=== PATIENT | female | born 1990 | race Caucasian/White ===

== ENCOUNTER 2020-01-13 09:52 | Day surgery (SDC) ==
[2020-01-13] MEDS ORDERED: NS 1,000 ML IV ONE (10:11)
[2020-01-13] MEDS ORDERED: ZOFRAN IV ONE (10:11)
[2020-01-13 10:25] LABS: URINE SOURCE CLEAN CATCH
[2020-01-13] MEDS ORDERED: DILAUDID IV ONE (10:34)
[2020-01-13 10:41] LABS: BASO# 0.02 X1000 (0.0-0.2); BASO% 0.1 % (0.0-0.8); EOS# 0.04 X1000 (0.0-0.7); EOS% 0.2 % (0.0-10.0); HEMATOCRIT 37.3 % (37.0-47.0); HEMOGLOBIN 12.7 g/dL (12.0-16.0); IMM GRAN# 0.07 X1000 (0.0-0.04); IMM GRAN% 0.4 % (0.0-0.5); LYMPH# 1.52 X1000 (1.2-3.4); LYMPH% 9.4 % (20.5-51.1); MCH 28.9 PG (27-31); MONO# 1.19 X1000 (0.11-0.59); MONO% 7.3 % (1.7-9.3); MPV 10.4 FL (7.4-10.4); NEUT# 13.37 X1000 (1.4-6.5); NEUT% 82.6 % (42.2-75.2); PLT 218 X1000 (130-400); RBC 4.39 XMIL (4.2-5.4); RDW 12.8 % (11.5-14.5); WBC 16.21 X1000 (4.8-10.8)
[2020-01-13 10:44] LABS: BILIRUBIN URINE NEGATIVE (NEGATIVE); BLOOD URINE NEGATIVE (NEGATIVE); COLOR YELLOW; GLUCOSE URINE NEGATIVE (NEGATIVE); KETONE URINE 10 mg/dL (NEGATIVE); LEUKOCYTES URINE NEGATIVE (NEGATIVE); NITRITE URINE NEGATIVE (NEGATIVE); PH URINE 6.5; PROTEIN URINE TRACE mg/dL (NEGATIVE); SP GRAVITY URINE 1.026; TURBIDITY URINE CLEAR (CLEAR); UROBILINOGEN URINE NORMAL (NORMAL)
[2020-01-13 10:45] LABS: UR EPITHELIAL CELLS <10 /HPF (<10); URINE BACTERIA NEGATIVE /HPF; URINE RBC <10 /HPF (<10); URINE WBC <10 /HPF (<10)
[2020-01-13 11:00] LABS: AGAP 15; ALBUMIN 4.7 g/dL (3.5-5.0); ALKALINE PHOSPHATASE 60 U/L (32-104); BUN 8 mg/dL (8-22); CALCIUM 9.7 mg/dL (8.8-10.2); CHLORIDE 95 mmol/L (98-107); COSMO 268; CREATININE 0.6 mg/dL (0.5-0.9); ESTIMATED GFR > 60; GLUCOSE 124 mg/dL (70-104); GOT 18 U/L (10-30); GPT 18 U/L (10-36); POTASSIUM 3.7 mmol/L (3.5-5.1); SODIUM 134 mmol/L (136-145); TCO2 24 mmol/L (25-35); TOTAL BILIRUBIN 0.43 mg/dL (0.20-1.00); TOTAL PROTEIN 7.1 g/dL (6.3-8.3)
--- NOTE | 2020-01-13 11:31 | Diag Imaging Result Doc PS360 ---
EXAM: CT ABD/PELVIS W/IV CONT ONLY 01/13/2020 HISTORY: RLQ abdo pain TECHNIQUE: This exam was performed using automated exposure control, adjustment of mA or kV according to patient size, and/or use of iterative reconstruction technique. COMMENT: There are no previous studies. The appearance of the visualized portion of the chest is unremarkable. The liver, spleen, adrenal glands, and pancreas are within normal limits. The gallbladder is unremarkable. The kidneys are without evidence of hydronephrosis or mass. There is no evidence of abdominal aortic aneurysm or significant adenopathy. Pelvis: The appendix is markedly distended at 16 mm distal to a fecalith in the proximal appendix. There is free fluid in the cul-de-sac measuring almost 17 Hounsfield units in density. There is what appears to be a corpus luteum cyst in the right ovary measuring up to 2.3 cm. The urinary bladder is not distended. The visualized skeleton is intact. IMPRESSION: Acute appendicitis with appendicolith. Free fluid in the pelvis which may be related to recent ovulation, although the possibility of free pus cannot be excluded. The findings were discussed with Oscar Lopes MD at 01/13/2020 11:28 AM. Electronically signed by Jori Simmons 01/13/2020 11:28 AM
--- NOTE | 2020-01-13 11:46 | PROVIDER DOCUMENTATION ---
This chart was entered by Martha Yancey Scribe, acting as scribe for Sundar Montiel MD. HPI-Abdominal Pain/GI Problem - General Chief Complaint: Abdominal Pain Stated Complaint: DR RAMIREZ SENT TO ER STOMACH PAIN Time Seen by Provider: 01/13/20 09:58 Source: patient - History of Present Illness-ABD Nature of Presenting Problems: 29 yowf presents to the ed per dr ramirez instruction. pt c/o RLQ/RLQ tenderness and pain with nausea and vomiting since acute onset last night. pt last BM was normal and last night prior to onset of sx. Abdominal Pain Onset Location: reports: RLQ Pain Radiation: reports: RUQ Quality of Pain: reports: aching, cramping Severity in ED: reports: moderate Onset/Duration: reports: last night Timing: reports: still present, intermittent, getting worse Activities at Onset: reports: light activity Exposure to sick contacts?: No Modifying Factors: worse with: palpation Associated Symptoms: reports: nausea, vomiting. denies: back/neck pain, chest pain, diarrhea, fever/chills, headaches, shortness of breath Last BM: last night Dark Stools Present?: reports: none noticed Rectal Bleeding: reports: none # of Diarrhea Episodes: 0 Rectal Pain: reports: none # of Vomiting Episodes: 4 Emesis Description: reports: none Bruising or Bleeding Gums?: No Similar Symptoms Previously?: No Recently seen or treated by another doctor?: No Review of Systems - Adult - REVIEW OF SYSTEMS - ADULT Constitutional: denies: chills, fever Eyes: reports: no symptoms reported Ears, Nose, Mouth & Throat: reports: no symptoms reported Cardiovascular: denies: chest pain, palpitations Respiratory: denies: cough, shortness of breath, wheezing Gastrointestinal: reports: see HPI, abdominal pain, nausea, vomiting. denies: constipation, diarrhea Genitourinary: reports: no symptoms reported Musculoskeletal: denies: back pain, neck pain Integumentary: reports: no symptoms reported Neurological: denies: dizziness/vertigo, headache/migraines Psychiatric: reports: no symptoms reported Endocrine: reports: no symptoms reported Hematologic/Lymphatic: reports: no symptoms reported Allergic/Immunologic: reports: no symptoms reported All Other Systems: Reviewed and Negative Past History - Adult - PAST MEDICAL HISTORY-ADULT Review of Records: reports: Old Records Reviewed, Nursing Assessment Review, Medications Reviewed, Social history reviewed & non-contributory. Major Childhood Illnesses: reports: denies history Cardiovascular: reports: denies history Respiratory: reports: denies history Gastrointestinal: reports: denies history Obstetrical/Gynecological: reports: denies history Genitourinary: reports: denies history Musculoskeletal: reports: denies history Neurological: reports: denies history Psychiatric: reports: denies history Endocrine/Immune: reports: denies history Other Conditions: reports: denies history - PRIOR SURGERIES/PROCEDURES Surgical/Procedure History: reports: reviewed, not pertinent - IMMUNIZATION STATUS Childhood Immunizations: See Nurse Assessment Flu Vaccine: See Nurse Assessment - FAMILY HISTORY Family History: reviewed, not pertinent - SOCIAL HISTORY Smoking: denies Substance Use: denies Living Situation: family Physical Exam-General - PHYSICAL EXAM-ADULT Initial Vital Signs Reviewed: Yes - CONSTITUTIONAL General Appearance: appears well, alert, mild distress - EYES Eyes: PERRL/EOMI, pink conjunctivae - HEAD, EARS, NOSE, MOUTH & THROAT HENMT: moist mucous membranes - NECK Neck: non-tender, full range of motion, supple, normal inspection - RESPIRATORY Respiratory: chest non-tender, lungs clear, normal breath sounds - CARDIOVASCULAR Cardiovascular: normal peripheral pulses, regular rate, rhythm - CHEST (BREASTS) Chest/Breast: deferred - GASTROINTESTINAL (ABDOMEN) Abdominal Exam: soft, guarding, tenderness, McBurney's point tenderness - GENITOURINARY Female Genitalia/Pelvic Exam: deferred Rectal Exam: deferred - LYMPHATIC Lymphatic: no adenopathy - MUSCULOSKELETAL Back Exam: no CVA tenderness, no vertebral tenderness Extremity: normal range of motion, non-tender, normal gait, normal inspection - SKIN Integumentary: normal color, normal turgor, warm/dry - NEUROLOGIC Neurologic: grossly normal - PSYCHIATRIC Psych/Mental Status: normal mood/affect, normal thought content, normal thought process, oriented x 3 Progress - PLAN OF CARE/RESULTS Progress/Plan/Lab Results: Vital Signs - 8 hr 01/13/20 09:57 Temperature 97.9 F Pulse Rate 100 H Respiratory Rate 18 Blood Pressure 132/69 O2 Sat by Pulse Oximetry 100 Result Diagrams: 01/13/20 10:26 01/13/20 10:26 - REASSESSMENT Reassessment #1 Time Reassessed: 10:13 (dr ramirez is aware of pt and will be into the ed after he is out of sx) Status: unchanged Reassessment #2 Time Reassessed: 11:43 (pt pain has improved and is resting in bed. dr ramirez has been at bedside) Status: improving - CT/MRI 1 CT Study: Abdomen, Pelvis Impression: See EMR Report (IMPRESSION: Acute appendicitis with appendicolith. Free fluid in the pelvis which may be related to recent ovulation, although the possibility of free pus cannot be excluded. The findings were discussed with Oscar Lopes MD at 01/13/2020 11:28 AM. Electronically signed by Jori Simmons 01/13/2020 11:28 AM) - CONSULTS/PCP/HOSPITALIST Notification #1 *Consult/PCP/Hospitalist*: Dr Lopes Time Discussed: 11:46 Consult Disposition: Will see in ED, Admit Departure - Departure Date of Disposition Decision: 01/13/20 Time of Disposition Decision: 11:45 DIAGNOSIS: Acute appendicitis Disposition: ADMITTED INPATIENT 09 Certified Medical Emergency: Emergent Condition: Fair Referrals and Follow-Ups: None,PCP [Primary Care Provider] - - Critical Care Note This patient required my direct & personal management of CC.: Yes Total Time (mins): 35 Critical Care Statement: This patient required my direct personal management to treat or rule out processes, the absence of which, could potentiallly result in sudden, clinically significant life or limb threatening deterioration. Attestation - Physician/ JO-ANN Attestation Patient care was provided by Advanced Practice Provider:: No The physician spent face to face time with patient:: Yes Advanced Practice Provider documentation review:: Supervising physician onsite and consulted in the evaluation and care of this patient. The physician did have a face to face encounter with the patient. This chart was documented by the indicated scribe, (Martha Yancey Scribe) and accurately reflects the services I performed and decisions made by me, Sundar Montiel MD, as attested by the provider's signature.
[2020-01-13] MEDS ORDERED: DIPRIVAN 1% ONE (12:01)
[2020-01-13] MEDS ORDERED: ROBINUL ONE (12:01)
[2020-01-13] MEDS ORDERED: XYLOCAINE-MPF 2% ONE (12:01)
[2020-01-13] MEDS ORDERED: KEFZOL 1 GM/D5W 1 GM/50 ML IVPB IV ONE (12:05)
[2020-01-13] MEDS ORDERED: D5 1/2 NS 1,000 ML IV ONE (12:06)
[2020-01-13] MEDS ORDERED: LR 1,000 ML ONE (12:29)
[2020-01-13] MEDS ORDERED: SENSORCAINE 0.25%/EPI 1:200,000 ONE (12:29)
[2020-01-13] MEDS ORDERED: ZEMURON ONE (12:57)
[2020-01-13] MEDS ORDERED: TORADOL ONE (13:07)
[2020-01-13] MEDS ORDERED: ZOFRAN ONE (13:07)
[2020-01-13] MEDS ORDERED: DECADRON ONE (13:07)
[2020-01-13] MEDS ORDERED: OFIRMEV 1000 MG/ISOTONIC SOLN 1,000 MG/100 ML BOTTLE ONE (13:09)
[2020-01-13] MEDS ORDERED: DILAUDID ONE (13:23)
[2020-01-13] MEDS ORDERED: BRIDION ONE (13:50)
[2020-01-13] MEDS ORDERED: D5 1/2 NS 1,000 ML ONE (13:53)
--- NOTE | 2020-01-13 14:29 | OPERATIVE NOTE ---
PROCEDURE DATE: 01/13/2020 PREOPERATIVE DIAGNOSIS: Acute appendicitis. POSTOPERATIVE DIAGNOSIS: Acute appendicitis. PROCEDURE: Laparoscopic appendectomy. DESCRIPTION OF PROCEDURE IN DETAIL: The patient was brought to the operating room. After satisfactory induction of IV and endotracheal anesthesia, athrombic TEDs and Bruce catheter were placed. Her abdomen was prepped and draped in the appropriate manner for laparoscopy. Initially, the infraumbilical area was infiltrated with 0.25% Marcaine. Dissection was taken sharply down through skin and subcutaneous tissue. Fascia was tacked with 0 Surgilon and incised. Under direct visualization, a Mimi trocar was placed. The abdomen was insufflated to 3.5 liters of carbon dioxide. Again, after infiltration with Marcaine and epinephrine, a suprapubic 5 mm between these two and 12 mm trocar were placed. The patient was repositioned. The cecum was delivered, along with a suppurative appendix with no evidence of perforation. It was distended and pale with previously-diagnosed fecalith in the proximal appendix. A window was made at the base of the appendix, and this was stapled across with an Endo DARCI. The mesentery was taken in a single bite with an Endo DARCI. Appendix was subsequently placed in an EndoCatch bag and removed. Reinspection of the cecal area revealed no bleeding, leakage or expanding hematoma. The pelvis was seen to have a small amount of fluid and a functional cyst on the right ovary. The small amount of fluid in the cul de sac was aspirated away. The abdomen was subsequently deflated and the trocars were removed. The subumbilical incision underwent fascial closures of 0 Surgilon. All skin incisions were closed with subcuticular 4-0 Vicryl. Steri-Strips, Telfa, and OpSite were applied. Bruce catheter was removed. The patient was awakened and extubated in the operating room and transferred to recovery. Estimated blood loss was about 10 mL. cc: Oscar Wynn MD [facility]
[2020-01-13] MEDS ORDERED: MORPHINE IV PRN (14:50)
[2020-01-13] MEDS ORDERED: ZOFRAN IV PRN ×2 (14:51→14:52)
[2020-01-13] MEDS ORDERED: NORCO-10 PO PRN (14:52)
[2020-01-13] MEDS ORDERED: ZOFRAN PO PRN ×2 (14:52→14:53)
[2020-01-13] MEDS ORDERED: FLU VACCINE IM ONE (14:59)
[2020-01-13] MEDS ORDERED: D5 1/2 NS 1,000 ML IV SCH (15:00)
[2020-01-13] MEDS: D5 1/2 NS 1,000 ML IV SCH ×2 (15:11→16:24)
[2020-01-13] MEDS: NORCO-10 PO PRN (17:53)
[2020-01-13] MEDS ORDERED: PERIDEX MT SCH (21:00)
[2020-01-13] MEDS: KEFZOL 1 GM/D5W 1 GM/50 ML IVPB IV SCH (21:01)
[2020-01-13] MEDS: MORPHINE IV PRN (21:02)
[2020-01-13] MEDS: PERIDEX MT SCH (21:02)
[2020-01-14] MEDS: D5 1/2 NS 1,000 ML IV SCH ×2 (04:09→08:11)
[2020-01-14] MEDS: MORPHINE IV PRN (04:09)
[2020-01-14] MEDS: KEFZOL 1 GM/D5W 1 GM/50 ML IVPB IV SCH (04:09)
[2020-01-14 06:52] LABS: BASO# 0.01 X1000 (0.0-0.2); BASO% 0.1 % (0.0-0.8); HEMATOCRIT 32.5 % (37.0-47.0); HEMOGLOBIN 10.6 g/dL (12.0-16.0); IMM GRAN# 0.02 X1000 (0.0-0.04); IMM GRAN% 0.2 % (0.0-0.5); LYMPH# 2.12 X1000 (1.2-3.4); LYMPH% 17.5 % (20.5-51.1); MCH 28.5 PG (27-31); MCHC 32.6 g/dL (33-37); MCV 87.4 FL (81-99); MONO# 0.92 X1000 (0.11-0.59); MONO% 7.6 % (1.7-9.3); MPV 10.8 FL (7.4-10.4); NEUT# 9.04 X1000 (1.4-6.5); NEUT% 74.6 % (42.2-75.2); PLT 215 X1000 (130-400); RBC 3.72 XMIL (4.2-5.4); RDW 13.1 % (11.5-14.5); WBC 12.11 X1000 (4.8-10.8)
[2020-01-14 07:26] VITALS: BP 99/48
[2020-01-14] MEDS: NORCO-10 PO PRN (08:08)
[2020-01-14] MEDS: PERIDEX MT SCH (08:08)
== END 2020-01-14 10:47 | disposition other institution (70) ==
LOC: ED 09:52 → 4N 09:52 → OPS 01-14 10:47
PROVIDERS: ATTEND Surgery